=== PATIENT | male | born 1955 | race Caucasian/White ===

== ENCOUNTER 2018-01-09 22:45 | Emergency (ER) | payer OTHER, MEDICAID, SELFPAY ==
--- NOTE | 2018-01-09 22:49 | DI.CT.S_ITS ---
PROCEDURE: CT HEAD/BRAIN WO CON INDICATIONS: head injury, syncope, vomiting TECHNIQUE: Noncontrast 4.5 mm thick angled axial sections acquired from the foramen magnum to the vertex, with coronal and sagittal reformats. For radiation dose reduction, the following was used: automated exposure control, adjustment of mA and/or kV according to patient size. COMPARISON: None. FINDINGS: Image quality: Excellent. CSF spaces: Basal cisterns are patent. No extra-axial fluid collections. The ventricles are symmetric in size and shape. Brain: No intracranial bleeds or masses. There is cerebral volume loss for age, with resultant ventricular and sulcal prominence. There are periventricular and deep white matter chronic small vessel ischemic changes. There is intracranial internal carotid artery atherosclerosis. Skull and face: Calvarium and visualized facial bones appear intact, without suspicious lesions. Sinuses: Visualized sinuses and mastoids are clear. IMPRESSION: 1. No acute intracranial abnormalities. No significant discrepancy with the tank processor radiology preliminary report. Dictated by: Juanis Garcia M.D. on 01/10/2018 at 8:22 Approved by: Juanis Garcia M.D. on 01/10/2018 at 8:24
[2018-01-09 22:55] VITALS: BP 109/64; PULSE 96; RESP 15; TEMP 35.9; O2SAT 94
[2018-01-09] MEDS: TET,DIPH,PERTUSS(ACELL),VAC/PF 0.5 ML SYRINGE IM (22:59)
[2018-01-09 23:16] LABS: Add Manual Diff / Slide Review NO; Basophils Percent Auto 0.9 % (0-2); Eosinophils Percent Auto 2.6 % (2-4); Hematocrit 38.6 % (41-53); Lymphocytes Percent Auto 42.3 % (25-40); Mean Corpuscular HGB Conc 33.6 % (30-36); Mean Corpuscular Hemoglobin 31.5 PG (26-34); Mean Corpuscular Volume 93.9 fL (80-100); Monocytes Percent Auto 5.6 % (3-14); Neutrophils Absolute Auto 5300 /uL (3000-5900); Neutrophils Percent Auto 48.6 % (50-75); Platelet Count 395 X10^3/uL (150-400); Red Blood Cell Count 4.11 X10^6/uL (4.5-5.9); Red Cell Distribution Width 13.6 % (11.6-14.8); White Blood Cell Count 10.9 X10^3/uL (4.5-11.0)
[2018-01-09 23:25] LABS: Alanine Aminotransferase 24 IU/L (21-72); Albumin 3.9 g/dL (3.5-5.0); Albumin Globulin Ratio 1.4 (1.0-2.8); Alkaline Phosphatase 54 U/L (38-126); Aspartate Aminotransferase 22 IU/L (17-59); BUN Creatinine Ratio 14.4 (6-22); Bilirubin Total 0.8 mg/dL (0.2-1.3); Blood Urea Nitrogen 13 mg/dL (9-20); Calcium 8.5 mg/dL (8.4-10.2); Carbon Dioxide 28 mmol/L (22-32); Chloride 107 mmol/L (98-107); Estimated Glomerular Filt Rate > 60.0 mL/min (>60); Globulin 2.7 g/dL (1.7-4.1); Glucose 105 mg/dL (80-110); HEMOLYSIS < 15 (0-50); Potassium 3.6 mmol/L (3.4-5.1); Sodium 146 mmol/L (137-145); Total Protein 6.6 g/dL (6.3-8.2)
[2018-01-09 23:27] LABS: Ethanol (ETOH) 145 mg/dL
--- NOTE | 2018-01-09 23:44 | PC.NURSE ---
Pt denies pain, states has not hurt himself and wants to go home. Reports that he doesn't drink very often but was feeling festive tonight at [employer] and probably drank too much. Pt has lac to right ear, [place] stool [place] and smells of ETOH. Pt is unaware of LOC and denies blood thinners.
--- NOTE | 2018-01-10 00:44 | ED.HEATRA ---
HPI - Head Injury General Chief complaint: Head Injury Stated complaint: ETOH Time Seen by Provider: 01/09/18 22:50 Source: patient and EMS Mode of arrival: EMS History of Present Illness HPI Narrative: 62-year-old male presents by EMS for evaluation of intoxication with a fall and head injury. The patient denies any loss of consciousness but has vomited. He admittedly had more alcohol today than is normal, but he is not normally a drinker. He did suffer a small laceration on his right ear. He denies other injury. He has awake, alert and oriented with a duration of EMS interaction as well as our visit here. He is otherwise well and free of complaint. Complaint: head injury Onset (ago): minute(s) Mechanism of Injury: fall Place: other Loss of Consciousness: no Location of injury: other Severity: mild Radiation: none Other Injuries: laceration Context: recent alcohol use Associated symptoms: denies other symptoms Related Data Allergies Allergy/AdvReac Type Severity Reaction Status Date / Time No Known Drug Allergies Allergy Verified 01/09/18 22:55 Review of Systems Review of Systems All systems reviewed & are unremarkable except as noted in HPI and below Constitutional Denies chills, Denies fever(s), Denies lethargy and Denies weakness Eyes Denies change in vision, Denies eye discharge, Denies irritation and Denies loss of vision ENT Ears, Nose, Mouth, and Throat: Denies change in voice, Denies neck pain and Denies sore throat Cardiovascular Denies chest pain, Denies irregular heart rhythm, Denies lightheadedness, Denies palpitations, Denies dyspnea, Denies dyspnea on exertion and Denies orthopnea Respiratory Denies cough, Denies dyspnea, Denies dyspnea on exertion and Denies wheezing Gastrointestinal Gastrointestinal: Denies abdominal pain, Denies change in bowel habits, Denies diarrhea, Denies nausea and Denies vomiting Genitourinary Denies hematuria, Denies flank pain, Denies urinary incontinence and Denies urinary urgency Musculoskeletal Denies neck pain Integumentary/Breasts Denies pruritus, Denies erythema, Denies rash and Reports wounds (R ear) Neurologic Denies confusion, Denies loss of vision and Denies weakness Psychiatric Denies anxiety, Denies confusion, Denies depression, Denies homicidal ideation and Denies suicidal ideation Endocrine Denies palpitations Hematologic/Lymphatic Denies easy bruising Allergic/Immunologic Denies wheezing Exam Narrative Exam Narrative: GENERAL: This is a well-nourished, well-developed patient, in mild distress. GCS 15 HEAD: Atraumatic. Normocephalic. No temporal or scalp tenderness. EYES: Pupils equal round and reactive. Extraocular motions intact. No scleral icterus. No injection or drainage. ENT: Nose without bleeding, purulent drainage or septal hematoma. Throat without erythema, tonsillar hypertrophy or exudate. Uvula midline. Airway patent. R ear with simple, superficial 1cm laceration. NECK: Trachea midline. No JVD or lymphadenopathy. Supple, nontender, no meningeal signs. CARDIOVASCULAR: Regular rate and rhythm without murmurs, gallops, or rubs. RESPIRATORY: Clear to auscultation. Breath sounds equal bilaterally. No wheezes, rales, or rhonchi. GASTROINTESTINAL: Abdomen soft, non-tender, nondistended. No hepato-splenomegaly, or palpable masses. No guarding. EXTREMITIES: No clubbing, cyanosis, or edema. No joint tenderness, effusion, or edema noted. BACK: Nontender without deformity or crepitance. No flank tenderness. NEURO: AOx3. Patient is speaking clearly without slurring words and ambulating with a steady gait. He demonstrates capacity to make his own decisions SKIN: No rash or erythema. Initial Vital Signs Initial Vital Signs: Vital Signs Temperature 96.6 F L 01/09/18 22:55 Pulse Rate 96 H 01/09/18 22:55 Respiratory Rate 15 01/09/18 22:55 Blood Pressure 109/64 01/09/18 22:55 Pulse Oximetry 94 01/09/18 22:55 Course Orders Ordered: ED Orders 01/09/18 22:49 CT head/brain wo con Stat 01/09/18 23:00 Complete Blood Count AUTO DIFF Stat Comprehensive Metabolic Panel Stat Ethanol (ETOH) Stat Discontinued Medications Diphtheria/Tetanus/Acell Pertussis (Adacel) 0.5 ml IM .ONCE ONE Stop: 01/09/18 22:59 Last Admin: 01/09/18 22:59 Dose: 0.5 ml Reevaluation(s) Reevaluation #1: Recommend 2-3 superficial sutures for repair of year laceration but patient refuses. He understands the potential consequences such as infection, scarring, or other poor healing. He is willing to accept the risk. He has had his questions answered to his apparent satisfaction. Patient continues to speak clearly hand demonstrate is the understanding of the scenario. He is walking with a steady gait and requesting discharge Vital Signs - 8 hr 01/09/18 22:55 Temperature 96.6 F L Pulse Rate 96 H Respiratory Rate 15 Blood Pressure 109/64 Pulse Oximetry 94 MDM - Head Injury Differential Diagnosis Differential diagnosis: Likely concussion without loss of consciousness, closed head injury, subarachnoid hematoma, postconcussion syndrome and subdural hematoma Lab Data Result diagrams: 01/09/18 23:00 01/09/18 23:00 Lab Results 01/09/18 01/09/18 Range/Units 23:00 23:00 WBC 10.9 (4.5-11.0) X10^3/uL RBC 4.11 L (4.5-5.9) X10^6/uL Hgb 13.0 L (13.5-17.5) g/dL Hct 38.6 L (41-53) % MCV 93.9 (80-100) fL MCH 31.5 (26-34) PG MCHC 33.6 (30-36) % RDW 13.6 (11.6-14.8) % Plt Count 395 (150-400) X10^3/uL Neut % (Auto) 48.6 L (50-75) % Lymph % (Auto) 42.3 H (25-40) % [place] % (Auto) 5.6 (3-14) % Eos % (Auto) 2.6 (2-4) % Baso % (Auto) 0.9 (0-2) % Neut # (Auto) 5300 (5634-6758) /uL Sodium 146 H (137-145) mmol/L Potassium 3.6 (3.4-5.1) mmol/L Chloride 107 (98-107) mmol/L Carbon Dioxide 28 (22-32) mmol/L BUN 13 (9-20) mg/dL Creatinine 0.90 (0.66-1.25) mg/dL Estimated GFR > 60.0 (>60) mL/min BUN/Creatinine Ratio 14.4 (6-22) Glucose 105 (80-110) mg/dL Calcium 8.5 (8.4-10.2) mg/dL Total Bilirubin 0.8 (0.2-1.3) mg/dL AST 22 (17-59) IU/L ALT 24 (21-72) IU/L Alkaline Phosphatase 54 (38-126) U/L Total Protein 6.6 (6.3-8.2) g/dL Albumin 3.9 (3.5-5.0) g/dL Globulin 2.7 (1.7-4.1) g/dL Albumin/Globulin Ratio 1.4 (1.0-2.8) Ethyl Alcohol 145 mg/dL Imaging Data CT scan - head: Radiologist's impression: No bleed Discharge Plan Departure Patient Disposition: Home Clinical Impression: Alcohol abuse, Ear lobe laceration Instructions: DI for Laceration Repair Steri-Strips Activity Restrictions/Additional Instructions: *You have been diagnosed with [ alcohol abuse, great right ear laceration repaired with Steri-Strips ] *What to do: *Follow up with your primary care provider in 2-3 days, call for an appointment. Let them know you were seen in the Emergency Department and that we ask that you be seen in follow up *Return to ER if you should have any new, worsening or concerning symptoms
--- NOTE | 2018-01-10 01:00 | PC.NURSE ---
Pt has lac to posterior right ear, bleeding controlled, refusing sutures or steri strips stating he heals well and does not want or need care for his ear.
[2018-01-10 01:45] VITALS: BP 119/75; PULSE 69; RESP 16; O2SAT 98
== END 2018-01-10 01:45 | disposition home or self-care (01) ==
PROVIDERS: Emergency Provider Emergency Medicine
DX: S01.311A Laceration without foreign body of right ear, initial encounter (principal); F10.10 Alcohol abuse, uncomplicated; W19.XXXA Unspecified fall, initial encounter
CPT/HCPCS: 36415; 70450; 80053; 80320; 85025; 90471; 99282; 99284; 90715